=== PATIENT | female | born 1950 | race Caucasian/White ===

== ENCOUNTER 2017-11-17 08:09 | Emergency (ER) | payer MEDICARE, OTHER ==
[2017-11-17] MEDS ORDERED: Acetaminophen 500 MG TAB ONE (09:03)
--- NOTE | 2017-11-17 19:47 | CT ---
CT OF THE BRAIN WITHOUT CONTRAST: 11/17/17 The ventricles are normal in size for age and atrophy. There is no ventricular shift. No intracranial bleeding or extra-axial hematoma was seen. There is no sign of mass, stroke, or edema. The skull chris ears intact. The various paranasal sinuses are clear and the mastoid air cells are clear as well. The re may be a few small polyps or areas of mucosal thickening in the sphenoid sinus on the left side. IMPRESSION: No acute intracranial finding. POS: HOME
--- NOTE | 2017-11-17 20:00 | CT ---
CT OF THE THORACIC SPINE WITHOUT CONTRAST 11/17/[address] of the thoracic spine was performed for evaluation following trauma. Axial slices were acqu ired, then coronal and sagittal reconstructions were done. No fracture, dislocation, or acute bony change was seen at any thoracic level. Minor degenerative kayla nges are present but fairly unremarkable for age. There might be slight posterior bulging of the T7-T 8 disc, but this finding is equivocal. The paravertebral soft tissues appear normal. incidental findi ngs were a small to medium size hiatal hernia and a 1 cm cyst in the dome of the liver. IMPRESSION: No acute traumatic changes. POS: HOME
--- NOTE | 2017-11-17 20:35 | CT ---
CT OF THE CERVICAL SPINE: 11/17/[address] of the cervical spine was done following trauma. Axial slices were acquired, then coronal a nd sagittal reconstructions were done. No fracture, dislocation, or disc space narrowing was seen at any cervical level. The C1 to dens dist ance is normal and the soft tissues are normal in thickness. There is straightening of the cervical s pine which may be due to muscle spasm. Findings by level follow: C1-C2: No acute findings. C2-C3: Minor bilateral foraminal narrowing. C3-C4: Slight left foraminal narrowing. C4-C5: No acute findings. C5-C6: No acute findings. C6-C7: No acute findings. C7-T1: Some mild facet arthritis. There may be very minimal foraminal narrowing bilaterally. T1-T2: No acute findings. The lung apices are clear and show no sign of a pneumothorax. Another incidental finding on this stud y is what appears to be several hypodense nodules scattered throughout the thyroid gland bilaterally. A thyroid ultrasound might be instructive. IMPRESSION: 1. Loss of cervical lordosis, otherwise no acute findings. 2. Minor degenerative changes as noted. 3. Multiple bilateral thyroid nodules. POS: HOME
--- NOTE | 2017-11-17 20:42 | CT ---
CT LUMBAR SPINE WITHOUT CONTRAST: 11/17/[address] of the lumbar spine was performed for evaluation following trauma. Axial slices were acquired, then coronal and sagittal reconstructions were done. No fracture, dislocation, or acute bony change was seen at any lumbar level. All vertebrae appear int act. There is central canal stenosis at L4-L5 due to a combination of a concentrically bulging disc, ligamentous thickening and facet hypertrophy. At L5-S1, there is a diffusely bulging disc, however, there has been a prior laminectomy at this level. The SI joints were unremarkable in the area shown. Incidental findings included a small nonobstructing calculus in the lower pole of the right kidney. T here is a subtle hypodensity in the right kidney that is more likely a cyst than not but a renal ultr asound would be more definitive. I note such a finding on the 2007 MRI of the lumbar spine which woul d suggest that this is longstanding. IMPRESSION: 1. No acute lumbar findings. 2. Spinal stenosis at L4-L5, moderate degree. 3. Nonobstructing right renal calculus. 4. Probable small cysts in the right kidney. POS: HOME
== END 2017-11-17 09:24 | disposition home or self-care (01) ==
LOC: BURERS 08:09
DX: S39.012A Strain of muscle, fascia and tendon of lower back, initial encounter (principal); K21.9 Gastro-esophageal reflux disease without esophagitis; E78.5 Hyperlipidemia, unspecified; I10 Essential (primary) hypertension; F32.9 Major depressive disorder, single episode, unspecified; Z79.899 Other long term (current) drug therapy; Z79.82 Long term (current) use of aspirin; V43.52XA Car driver injured in collision with other type car in traffic accident, initial encounter
CPT/HCPCS: 70450; 72125; 72128; 72131

== ENCOUNTER 2018-05-21 11:04 | Emergency (ER) | payer MEDICARE | END 2018-05-21 11:27 | disposition home or self-care (01) | LOC: BURERS 11:04 | DX: R05 Cough (principal); K21.9 Gastro-esophageal reflux disease without esophagitis; E78.5 Hyperlipidemia, unspecified; I10 Essential (primary) hypertension; F41.9 Anxiety disorder, unspecified; Z79.899 Other long term (current) drug therapy; Z79.82 Long term (current) use of aspirin | CPT/HCPCS: 99283 ==

== ENCOUNTER 2020-11-23 17:33 | Emergency (ER) | payer MEDICARE ==
[2020-11-23] MEDS ORDERED: Aspirin Chewable 81 MG TAB ONE (18:04)
[2020-11-23 18:13] LABS: #Basophils 0.1 thou/uL (0.0-0.2); #Eosinphils 0.2 thou/uL (0.0-0.7); #Lymphocytes 2.6 thou/uL (1.20-3.40); #Monocytes 0.4 thou/uL (0.11-0.59); #Neutrophils 2.3 thou/uL (1.40-6.50); %Basophils 1.3 % (0.0-1.0); %Eosinophils 3.2 % (0.0-10.0); %Lymphocytes 47.2 % (21.0-51.0); %Monocytes 6.3 % (0.0-10.0); %Neutrophils 42.1 % (42.0-75.0); Hemoglobin 13.2 g/dL (12.0-16.0); Mean Corpuscular HGB CONC 32.4 g/dL (32.0-36.0); Mean Corpuscular Hemoglobin 28.7 pg (27.0-31.0); Mean Corpuscular Volume 88.7 fL (78.0-98.0); Mean Platelet Volume 8.2 fL (7.4-10.4); Platelet Count 195 thou/uL (130-400); RBC Distribution Width 12.5 % (11.5-14.5); Red Blood Cell (RBC) Count 4.61 mill/uL (4.20-5.40); White Blood Cell (WBC) Count 5.5 thou/uL (4.8-10.8)
[2020-11-23 18:30] LABS: ALT (SGPT) 15 U/L (8-55); AST (SGOT) 25 U/L (5-34); Albumin 3.9 g/dL (3.4-4.8); Alkaline Phosphatase 66 U/L (40-110); Anion Gap 15 mmol/L (10-20); BUN (Urea Nitrogen) 18 mg/dL (9.8-20.1); Bilirubin, Total 0.6 mg/dL (0.2-1.2); CK (CPK) 79 U/L (29-168); Calc. Creatinine Clearance 0 mL/min (70-130); Carbon Dioxide 25 mmol/L (23-31); Chloride 106 mmol/L (98-107); Globulin 3.2 g/dL (2.4-3.5); Glucose 84 mg/dL (80-115); Lipase 57 U/L (8-78); Potassium 3.9 mmol/L (3.5-5.1); Protein, Total 7.1 g/dL (5.8-8.1); Sodium 142 mmol/L (136-145)
[2020-11-23 21:17] LABS: Calcium 4.7 mg/dL (7.8-10.44)
== END 2020-11-23 20:27 | disposition short-term general hospital (02) ==
LOC: BURERS 17:33
DX: R07.89 Other chest pain (principal); R06.02 Shortness of breath; M25.512 Pain in left shoulder; K21.9 Gastro-esophageal reflux disease without esophagitis; E78.5 Hyperlipidemia, unspecified; I10 Essential (primary) hypertension; I49.9 Cardiac arrhythmia, unspecified; Z79.82 Long term (current) use of aspirin; Z79.899 Other long term (current) drug therapy
CPT/HCPCS: 71045; 80053; 82550; 83690; 83735; 84484; 85025; 93005; 96374

== ENCOUNTER 2022-07-28 06:13 | Emergency (ER) | payer MEDICARE ==
[2022-07-28] MEDS ORDERED: Acetaminophen 325 MG Suppository ONE (06:38)
[2022-07-28] MEDS ORDERED: Acetaminophen 325 MG TAB ONE (06:39)
[2022-07-28 07:17] LABS: SARS-CoV-2 NAA Rapid Test DETECTED (NotDetected)
== END 2022-07-28 07:55 | disposition home or self-care (01) ==
LOC: BURERS 06:13
DX: U07.1 COVID-19 (principal); I10 Essential (primary) hypertension; K21.9 Gastro-esophageal reflux disease without esophagitis; E78.5 Hyperlipidemia, unspecified
CPT/HCPCS: 71045; J7620

== ENCOUNTER 2023-03-23 19:59 | Emergency (ER) | payer MEDICARE ==
[~2023-03-23 19:59] MED LIST: Iopamidol 370 76% 100 ML VIAL ONE; Tenecteplase 50 MG ONE
[2023-03-23 20:19] LABS: #Basophils 0.1 thou/uL (0.0-0.2); #Eosinphils 0.2 thou/uL (0.0-0.7); #Lymphocytes 2.1 thou/uL (1.20-3.40); #Monocytes 0.4 thou/uL (0.11-0.59); %Basophils 1.4 % (0.0-1.0); %Eosinophils 4.6 % (0.0-10.0); %Lymphocytes 44.3 % (21.0-51.0); %Monocytes 7.4 % (0.0-10.0); %Neutrophils 42.3 % (42.0-75.0); Hematocrit 38.8 % (36.0-47.0); Mean Corpuscular HGB CONC 30.8 g/dL (32.0-36.0); Mean Corpuscular Hemoglobin 25.2 pg (27.0-31.0); Mean Corpuscular Volume 81.9 fl (78.0-98.0); Mean Platelet Volume 7.9 fL (7.4-10.4); Platelet Count 145 10x3/uL (130-400); RBC Distribution Width 14.1 % (11.5-14.5); Red Blood Cell (RBC) Count 4.74 mill/uL (4.20-5.40); White Blood Cell (WBC) Count 4.8 10x3/uL (4.8-10.8)
[2023-03-23 20:34] LABS: ALT (SGPT) 14 U/L (8-55); AST (SGOT) 19 U/L (5-34); Albumin 3.8 g/dL (3.4-4.8); Alkaline Phosphatase 96 U/L (40-110); Anion Gap 13 mmol/L (10-20); BUN (Urea Nitrogen) 16 mg/dL (9.8-20.1); Bilirubin, Total 1.5 mg/dL (0.2-1.2); Calc. Creatinine Clearance 0 mL/min (70-130); Calcium 8.7 mg/dL (7.8-10.44); Carbon Dioxide 23 mmol/L (23-31); Chloride 107 mmol/L (98-107); Estimated GFR 71; Globulin 2.8 g/dL (2.4-3.5); Glucose 98 mg/dL (83-110); Potassium 3.4 mmol/L (3.5-5.1); Protein, Total 6.6 g/dL (5.8-8.1); Sodium 140 mmol/L (136-145)
[2023-03-23 20:35] LABS: Troponin I 0.011 ng/mL (< 0.028)
[2023-03-23 20:37] LABS: INR-International Normal Ratio 0.9; Prothrombin Time 12.8 sec (12.0-14.7)
[2023-03-23 20:38] LABS: PTT 28.9 sec (22.9-36.1)
[2023-03-23] MEDS ORDERED: hydrALAZINE 20 MG/ML VIAL ONE (21:21)
[2023-03-23] MEDS ORDERED: Acetaminophen 500 MG TAB ONE (21:40)
[2023-03-23] MEDS ORDERED: Ondansetron PF 4 MG/2 ML Vial ONE ×2 (21:40→22:42)
[2023-03-23] MEDS ORDERED: Promethazine HCl 25 MG/ML VIAL ONE ×2 (22:06→22:54)
== END 2023-03-23 23:33 | disposition short-term general hospital (02) ==
LOC: BURERS 19:59
DX: I63.9 Cerebral infarction, unspecified (principal); K21.9 Gastro-esophageal reflux disease without esophagitis; E78.5 Hyperlipidemia, unspecified; I10 Essential (primary) hypertension; Z79.899 Other long term (current) drug therapy; Z79.82 Long term (current) use of aspirin
CPT/HCPCS: 70450; 70496; 70498; 80053; 82962; 83880; 84484; 85025; 85610; 85730; 93005; 94760; 96361; 96374; 96375; 96376; 99285; J0360; J3101; 36416; 36415-59; J2405; J2550; Q9967

== ENCOUNTER 2024-03-30 06:28 | Emergency (ER) | payer MEDICARE ==
[2024-03-30 06:53] LABS: Band 1 % (5-11); Eosinophils 1 % (0-10); Hematocrit 36.4 % (36.0-47.0); Hemoglobin 12.2 g/dL (12.0-16.0); Lymphocytes 16 % (21-51); MDiff Complete? YES; Mean Corpuscular HGB CONC 33.5 g/dL (32.0-36.0); Mean Corpuscular Hemoglobin 27.3 pg (27.0-31.0); Mean Corpuscular Volume 81.7 fl (78.0-98.0); Mean Platelet Volume 7.9 fL (7.4-10.4); Monocytes 1 % (0-10); Neutrophil 81 % (42-75); Platelet Count 169 10x3/uL (130-400); RBC Distribution Width 12.6 % (11.5-14.5); Red Blood Cell (RBC) Count 4.46 mill/uL (4.20-5.40); White Blood Cell (WBC) Count 12.7 10x3/uL (4.8-10.8)
[2024-03-30 06:58] LABS: PTT 28.2 sec (22.9-36.1); Prothrombin Time 13.1 sec (12.0-14.7)
[2024-03-30 07:04] LABS: ALT (SGPT) 19 U/L (8-55); AST (SGOT) 25 U/L (5-34); Albumin 3.5 g/dL (3.4-4.8); Alkaline Phosphatase 68 U/L (40-110); Anion Gap 16 mmol/L (10-20); BUN (Urea Nitrogen) 16 mg/dL (9.8-20.1); Bilirubin, Total 1.4 mg/dL (0.2-1.2); Calc. Creatinine Clearance 0 mL/min (70-130); Calcium 9.3 mg/dL (7.8-10.44); Carbon Dioxide 18 mmol/L (23-31); Chloride 112 mmol/L (98-107); Estimated GFR 68; Globulin 2.9 g/dL (2.4-3.5); Glucose 129 mg/dL (83-110); Potassium 3.5 mmol/L (3.5-5.1); Protein, Total 6.4 g/dL (5.8-8.1); Sodium 142 mmol/L (136-145)
[2024-03-30 07:05] LABS: Troponin I 0.012 ng/mL (< 0.028)
[2024-03-30] MEDS ORDERED: Tenecteplase 50 MG ONE (07:28)
[2024-03-30] MEDS ORDERED: Iopamidol 370 76% 100 ML VIAL ONE (14:07)
== END 2024-03-30 08:21 | disposition short-term general hospital (02) ==
LOC: BURERS 06:28
DX: R47.01 Aphasia (principal); K21.9 Gastro-esophageal reflux disease without esophagitis; E78.5 Hyperlipidemia, unspecified; I10 Essential (primary) hypertension; Z79.82 Long term (current) use of aspirin; Z79.899 Other long term (current) drug therapy
CPT/HCPCS: 36415; 36416; 70450; 70496; 70498; 80053; 84484; 85025; 85610; 85730; 93005; 96374; J3101; Q9967